=== PATIENT | female | born 1950 | race Caucasian/White ===

== ENCOUNTER 2017-12-15 14:48 | Emergency (ER) | payer MEDICARE, OTHER ==
[2017-12-15 14:56] VITALS: BP 160/75
[2017-12-15] MEDS ORDERED: Albuterol/Ipratropium 3.0-0.5 MG/3 ML Neb Soln NEB ONE (15:18)
--- NOTE | 2017-12-15 15:55 | EDM.PDOC ---
ED HPI GENERAL MEDICAL PROBLEM - General Chief Complaint: Respiratory Problem Stated Complaint: SOB Time Seen by Provider: 12/15/17 14:55 Source of Information: Reports: Patient History Limitations: Reports: No Limitations - History of Present Illness INITIAL COMMENTS - FREE TEXT/NARRATIVE: 67-year-old female presents for evaluation and treatments of a cough. Patient reports she's been experiencing a cough and shortness of breath for the last week. Reports on she developed a sore throat. Chest reports she had a fever on and Sunday and was diaphoretic. States she feels more fatigued than normal. Her cough is mostly nonproductive. No nausea, vomiting or abdominal pain. No influenza vaccine this season. She is up to date on her pneumonia vaccine. Primary care provider is Brook Rand. Duration: Week(s): (1) Chest Pain Score (Numeric/FACES): 8 - Related Data Allergies Allergy/AdvReac Type Severity Reaction Status Date / Time atorvastatin calcium AdvReac Muscle Verified 11/18/15 11:35 [From Lipitor] Aches meperidine HCl [From Demerol] AdvReac Change Verified 11/18/15 11:35 Mental Status Home Meds: Home Meds Aspirin [Aravind Chewable] 81 mg PO DAILY 03/16/14 [History] Clopidogrel [Plavix] 75 mg PO DAILY 03/16/14 [History] Rosuvastatin [Crestor] 10 mg PO DAILY 03/16/14 [History] Ubidecarenone [Co Q-10] 100 mg PO BEDTIME 08/04/15 [History] amLODIPine [Norvasc] 2.5 mg PO DAILY 08/04/15 [History] Doxycycline [Vibramycin] 100 mg PO BID #20 cap 12/15/17 [Rx] Escitalopram [Lexapro] 10 mg PO DAILY 12/15/17 [History] Levothyroxine 75 mcg PO DAILY 12/15/17 [History] Losartan Potassium 50 mg PO DAILY 12/15/17 [History] Promethazine HCl/Codeine [Prometh-Codein 6.25-10 mg/5 ml] 5 ml PO Q6HR PRN #120 ml 12/15/17 [Rx] Past Medical History Cardiovascular History: Reports: High Cholesterol, Hypertension, [place], Stents Oncologic (Cancer) History: Reports: Thyroid Other Oncologic History: removed - Past Surgical History Female Surgical History: Reports: Hysterectomy Social & Family History - Tobacco Use Smoking Status *Q: Current Every Day Smoker Years of Tobacco use: 45 Packs/Tins Daily: 0.5 - Caffeine Use Caffeine Use: Reports: Coffee, Soda - Recreational Drug Use Recreational Drug Use: No ED ROS GENERAL - Review of Systems Review Of Systems: See Below Constitutional: Reports: Fever, Malaise, Weakness, Fatigue, Diaphoresis. Denies : Chills HEENT: Reports: Throat Pain. Denies: Ear Pain Respiratory: Reports: Shortness of Breath, Cough. Denies: Sputum Cardiovascular: Reports: Other (chest pain associated with coughing) GI/Abdominal: Denies: Abdominal Pain, Diarrhea, Nausea, Vomiting ED EXAM, GENERAL - Physical Exam Exam: See Below Exam Limited By: No Limitations General Appearance: Alert, WD/WN, No Apparent Distress Ears: Normal External Exam, Normal Canal, Hearing Grossly Normal, Normal TMs Nose: Normal Inspection Throat/Mouth: Normal Inspection, Normal Lips, Normal Voice, No Airway Compromise Neck: Normal Inspection Respiratory/Chest: No Respiratory Distress, Lungs Clear, Wheezing (expiratory). No: Rhonchi Cardiovascular: Normal Peripheral Pulses, Regular Rate, Rhythm, No Murmur GI/Abdominal: Soft, Non-Tender Extremities: Normal Inspection Neurological: Alert, Oriented, Normal Cognition Psychiatric: Normal Affect, Normal Mood Skin Exam: Warm, Dry, Normal Color Course - Vital Signs Last Recorded V/S: Last Vital Signs Temp 36.5 C 12/15/17 14:53 Pulse 77 12/15/17 14:53 Resp 24 H 12/15/17 14:53 BP 160/75 H 12/15/17 14:53 Pulse Ox 98 12/15/17 15:26 - Orders/Labs/Meds Orders: Active Orders 24 hr Category Date Time Status RT Aerosol Therapy [RC] ASDIRECTED Care 12/15/17 15:18 Active Chest 2V [CR] Stat Exams 12/15/17 15:17 Taken Labs: Laboratory Tests 12/15/17 12/15/17 Range/Units 15:27 15:27 WBC 8.06 (3.98-10.04) K/mm3 RBC 3.92 L (3.98-5.22) M/mm3 Hgb 13.0 (11.2-15.7) gm/L Hct 38.6 (34.1-44.9) % MCV 98.5 H (79.4-94.8) fl MCH 33.2 H (25.6-32.2) pg MCHC 33.7 (32.2-35.5) g/dl RDW Std Deviation 45.2 (36.4-46.3) fL Plt Count 285 (182-369) K/mm3 MPV 9.6 (9.4-12.3) fl Neutrophils % (Manual) 61 H (40-60) % Band Neutrophils % 0 (0-10) % Lymphocytes % (Manual) 31 (20-40) % Atypical Lymphs % 0 % Monocytes % (Manual) 3 (2-10) % Eosinophils % (Manual) 4 (0.7-5.8) % Basophils % (Manual) 1 (0.1-1.2) Platelet Estimate Adequate Plt Morphology Comment Normal RBC Morph Comment Normal Sodium 136 (136-145) mEq/L Potassium 4.1 (3.5-5.1) mEq/L Chloride 100 (98-107) mEq/L Carbon Dioxide 25 (21-32) mEq/L Anion Gap 15.1 H (5-15) BUN 19 H (7-18) mg/dL Creatinine 0.9 (0.55-1.02) mg/dL Est Cr Clr Drug Dosing 57.37 mL/min Estimated GFR (MDRD) > 60 (>60) mL/min BUN/Creatinine Ratio 21.1 H (14-18) Glucose 105 (80-115) mg/dL Calcium 9.0 (8.5-10.1) mg/dL Total Bilirubin 0.3 (0.2-1.0) mg/dL AST 12 L (15-37) U/L ALT 16 (14-59) U/L Alkaline Phosphatase 99 (46-116) U/L C-Reactive Protein 1.4 H* (<1.0) mg/dL Total Protein 6.9 (6.4-8.2) g/dl Albumin 3.8 (3.4-5.0) g/dl Globulin 3.1 gm/dL Albumin/Globulin Ratio 1.2 (1-2) Meds: Medications Discontinued Medications Generic Name Dose Route Start Last Admin Trade Name Freq PRN Reason Stop Dose Admin Albuterol/Ipratropium 3 ml 12/15/17 15:18 12/15/17 15:26 Duoneb 3.0-0.5 Mg/3 Ml NEB 12/15/17 15:19 3 ml ONETIME ONE Administration - Radiology Interpretation Free Text/Narrative:: Chest x-ray shows no acute intrathoracic process. Reviewed by myself and Dr. Arun Joyce. - Re-Assessments/Exams Free Text/Narrative Re-Assessment/Exam: 12/15/17 18:09 Wheezing improved after the DuoNeb. Influenza returned negative. I reviewed the labs and imaging with the patient. Will treat for bronchitis. She has a nebulizer machine at home with albuterol nebulizers. I encouraged her to use this. No formal diagnosis of COPD but she does likely have some mild COPD and emphysema. Discharge insertions as documented. Departure - Departure Time of Disposition: 18:16 Disposition: Home, Self-Care 01 Condition: Fair Clinical Impression: Bronchitis - Discharge Information Prescriptions: Promethazine HCl/Codeine [Prometh-Codein 6.25-10 mg/5 ml] 5 ml PO Q6HR PRN #120 ml PRN Reason: Cough Doxycycline [Vibramycin] 100 mg PO BID #20 cap Instructions: Acute Bronchitis, Adult Referrals: Brook Rand, [employer] [Primary Care Provider] - Forms: ED Department Discharge Additional Instructions: Take the doxycycline 1 Twice a day for 10 days. Take this with food. This can cause photosensitivity. if you are outside in the sun make sure you are wearing sunscreen. Cough syrup with codeine 5 mls every 6 hours as needed for cough. This medication and make you drowsy. Do not drive or operate machinery within 12 hours of taking this. This medication is habit forming, take as little as needed to control you cough. Utilize your nebulizers that you have at home. One neb every 4-6 hours as needed for shortness of breath. Follow-up with her primary care provider within 10 days for recheck of your symptoms. Please return to the ER if your symptoms change or worsen. - My Orders Last 24 Hours: My Active Orders 12/15/17 15:17 Chest 2V [CR] Stat 12/15/17 15:18 RT Aerosol Therapy [RC] ASDIRECTED - Assessment/Plan Last 24 Hours: My Active Orders 12/15/17 15:17 Chest 2V [CR] Stat 12/15/17 15:18 RT Aerosol Therapy [RC] ASDIRECTED
--- NOTE | 2017-12-16 10:33 | CR ---
Chest: Two views of the chest were obtained. Comparison: Prior chest x-ray of 12/05/16. Heart size and mediastinum are normal. Lungs are somewhat hyperinflated. Lungs otherwise are clear. Minimal scoliosis is noted within the spine. Minimal degenerative change is also noted within the spine. Impression: 1. Emphysematous change and other incidental findings. Nothing acute is appreciated on two-view chest x-ray. Diagnostic code #2
== END 2017-12-15 18:26 | disposition home or self-care (01) ==
LOC: JD.ED 14:48
DX: J40 Bronchitis, not specified as acute or chronic (principal); E78.00 Pure hypercholesterolemia, unspecified; I10 Essential (primary) hypertension; F17.210 Nicotine dependence, cigarettes, uncomplicated; E07.9 Disorder of thyroid, unspecified; Z88.8 Allergy status to other drugs, medicaments and biological substances; Z88.5 Allergy status to narcotic agent; Z79.82 Long term (current) use of aspirin; Z79.899 Other long term (current) drug therapy
CPT/HCPCS: 36415; 71046; 71046-26; 80053; 85025; 86140; 87804; 94640; 99283; 99284-25

== ENCOUNTER 2020-01-24 22:38 | Emergency (ER) | payer MEDICARE, OTHER ==
[2020-01-24 22:48] VITALS: PULSE 69
[2020-01-24 22:51] VITALS: BP 160/60
--- NOTE | 2020-01-24 23:27 | EDM.PDOC ---
ED HPI GENERAL MEDICAL PROBLEM - General Chief Complaint: Chest Pain Stated Complaint: [facility] Time Seen by Provider: 01/24/20 22:50 Source of Information: Reports: Patient History Limitations: Reports: No Limitations - History of Present Illness INITIAL COMMENTS - FREE TEXT/NARRATIVE: This is a 70-year-old female. Tonight after eating some pizza and having a few beers she noted that she developed some epigastric cold sensation around 8 PM. Then she had some nausea and vomiting x3 felt somewhat dizzy and sweaty and lightheaded and called the ambulance and comes to the ER. She denies being short of breath and there is no radiation of her dull sensation into her jaw or down her left arm. She has a history of hypertension and she has 3 stents from 2008 and she is on Plavix. Presently she says she feels much better. She denies any recent illnesses and no recent chest pain or dull sensation in her chest in the last week until this evening. The patient does admit to the nurse that she drinks 3-4 beers every day. Middle Chest Pain Score (Numeric/FACES): 5 - Related Data Allergies Allergy/AdvReac Type Severity Reaction Status Date / Time atorvastatin calcium AdvReac Severe Muscle Verified 01/24/20 22:50 [From Lipitor] Aches meperidine HCl [From Demerol] AdvReac Severe Change Verified 01/24/20 22:50 Mental Status Home Meds: Home Meds Aspirin [Aravind Chewable Aspirin] 81 mg PO BEDTIME 03/16/14 [History] Clopidogrel [Plavix] 75 mg PO DAILY 03/16/14 [History] Rosuvastatin [Crestor] 10 mg PO BEDTIME 03/16/14 [History] Ubidecarenone [Co Q-10] 100 mg PO BEDTIME 08/04/15 [History] Escitalopram [Lexapro] 10 mg PO BEDTIME 12/15/17 [History] Levothyroxine 75 mcg PO ACBREAKFAST 12/15/17 [History] Fluticasone/Salmeterol [Advair 100-50] 1 puff INH BID 10/08/18 [History] Lisinopril 40 mg PO DAILY 10/08/18 [History] Multivitamin [Multi-Day Vitamins] 1 tab PO 1200 10/08/18 [History] Nicotine [Nicotine Patch] 21 mg TD DAILY 10/08/18 [History] Azithromycin [Zithromax] 500 mg PO Q24H #4 tablet 10/10/18 [Rx] Ondansetron [Zofran] 4 mg PO Q6H PRN #12 tab 01/25/20 [Rx] Pantoprazole Sodium [Protonix] 40 mg PO DAILY #30 suspdr.pkt 01/25/20 [Rx] Past Medical History HEENT History: Reports: Impaired Vision Cardiovascular History: Reports: High Cholesterol, Hypertension, [place], Stents Respiratory History: Reports: Bronchitis, Recurrent, Pneumonia, Recurrent Musculoskeletal History: Reports: Back Pain, Chronic Neurological History: Reports: Migraines, Neuropathy, Peripheral Psychiatric History: Reports: Depression Endocrine/Metabolic History: Reports: Hypothyroidism Oncologic (Cancer) History: Reports: Thyroid Other Oncologic History: removed - Past Surgical History Female Surgical History: Reports: Hysterectomy Social & Family History - Family History Family Medical History: Noncontributory - Tobacco Use Smoking Status *Q: Current Every Day Smoker Years of Tobacco use: 50 Packs/Tins Daily: 0.5 - Caffeine Use Caffeine Use: Reports: Coffee - Recreational Drug Use Recreational Drug Use: No ED ROS GENERAL - Review of Systems Review Of Systems: See Below Constitutional: Denies: Fever, Chills HEENT: Reports: No Symptoms Respiratory: Denies: Shortness of Breath, Cough Cardiovascular: Reports: Chest Pain, Lightheadedness Endocrine: Reports: No Symptoms GI/Abdominal: Reports: Nausea, Vomiting. Denies: Abdominal Pain, Diarrhea : Reports: No Symptoms Musculoskeletal: Reports: No Symptoms Skin: Reports: Diaphoresis Neurological: Reports: Dizziness Psychiatric: Reports: No Symptoms Hematologic/Lymphatic: Reports: No Symptoms ED EXAM, GENERAL - Physical Exam Exam: See Below Exam Limited By: No Limitations General Appearance: Alert, WD/WN, No Apparent Distress Eye Exam: Bilateral Eye: Normal Inspection Ears: Normal External Exam Nose: Normal Inspection Throat/Mouth: Normal Inspection, Normal Lips, Normal Voice, No Airway Compromise Head: Normocephalic Neck: Supple Respiratory/Chest: No Respiratory Distress, Lungs Clear, Normal Breath Sounds Cardiovascular: Regular Rate, Rhythm, No Murmur GI/Abdominal: Soft, Non-Tender Back Exam: Full Range of Motion Extremities: Normal Inspection, Normal Range of Motion Neurological: Alert, Oriented Psychiatric: Normal Affect, Normal Mood Skin Exam: Warm, Dry EKG INTERPRETATION EKG Date: 01/24/20 Time: 22:45 EKG Interpretation Comments: EKG shows a normal sinus rhythm rate of 67, there is no acute ST or T wave changes noted and there is no acute ischemia noted Course - Vital Signs Last Recorded V/S: Last Vital Signs Temp 97.2 F 01/24/20 22:42 Pulse 69 01/24/20 22:42 Resp 18 01/24/20 22:42 BP 160/60 H 01/24/20 22:51 Pulse Ox 98 01/24/20 22:42 - Orders/Labs/Meds Orders: Active Orders 24 hr Category Date Time Status EKG Documentation Completion [RC] ASDIRECTED Care 01/24/20 22:47 Active Chest 1V Frontal [CR] Stat Exams 01/24/20 22:47 Taken Sodium Chloride 0.9% [Normal Saline] 1,000 ml Med 01/25/20 00:15 Active IV ASDIRECTED EKG 12 Lead [EK] Stat Ther 01/24/20 22:47 Ordered Medication Orders Sodium Chloride (Normal Saline) 1,000 mls @ 1,000 mls/hr IV ASDIRECTED IJEOMA Last Admin: 01/25/20 00:12 Dose: 1,000 mls/hr Labs: Laboratory Tests 01/24/20 01/24/20 01/24/20 Range/Units 22:55 22:55 22:55 WBC 12.69 H (3.98-10.04) K/mm3 RBC 3.69 L (3.98-5.22) M/mm3 Hgb 12.6 D (11.2-15.7) gm/dl Hct 36.1 (34.1-44.9) % MCV 97.8 H (79.4-94.8) fl MCH 34.1 H (25.6-32.2) pg MCHC 34.9 (32.2-35.5) g/dl RDW Std Deviation 45.3 (36.4-46.3) fL Plt Count 362 D (182-369) K/mm3 MPV 8.5 L (9.4-12.3) fl Neut % (Auto) 74.6 H (34.0-71.1) % Lymph % (Auto) 15.0 L (19.3-51.7) % [place] % (Auto) 6.2 (4.7-12.5) % Eos % (Auto) 3.6 (0.7-5.8) Baso % (Auto) 0.3 (0.1-1.2) % Neut # (Auto) 9.46 H (1.56-6.13) K/mm3 Lymph # (Auto) 1.90 (1.18-3.74) K/mm3 [place] # (Auto) 0.79 H (0.24-0.36) K/mm3 Eos # (Auto) 0.46 H (0.04-0.36) K/mm3 Baso # (Auto) 0.04 (0.01-0.08) K/mm3 Manual Slide Review Normal smear Sodium 125 L D (136-145) mEq/L Potassium 3.9 (3.5-5.1) mEq/L Chloride 91 L D (98-107) mEq/L Carbon Dioxide 25 (21-32) mEq/L Anion Gap 12.9 (5-15) BUN 8 (7-18) mg/dL Creatinine 0.8 (0.55-1.02) mg/dL Est Cr Clr Drug Dosing 61.81 mL/min Estimated GFR (MDRD) > 60 (>60) mL/min BUN/Creatinine Ratio 10.0 L (14-18) Glucose 125 H (83-115) mg/dL Calcium 8.8 (8.5-10.1) mg/dL Total Bilirubin 0.4 (0.2-1.0) mg/dL AST 17 (15-37) U/L ALT 26 (14-59) U/L Alkaline Phosphatase 78 (46-116) U/L Troponin I 0.022 (0.00-0.056) ng/mL Total Protein 6.9 (6.4-8.2) g/dl Albumin 3.8 (3.4-5.0) g/dl Globulin 3.1 gm/dL Albumin/Globulin Ratio 1.2 (1-2) Lipase 133 (73-393) U/L Ethyl Alcohol 0.00 (0.00) gm% 01/25/20 Range/Units 01:10 WBC (3.98-10.04) K/mm3 RBC (3.98-5.22) M/mm3 Hgb (11.2-15.7) gm/dl Hct (34.1-44.9) % MCV (79.4-94.8) fl MCH (25.6-32.2) pg MCHC (32.2-35.5) g/dl RDW Std Deviation (36.4-46.3) fL Plt Count (182-369) K/mm3 MPV (9.4-12.3) fl Neut % (Auto) (34.0-71.1) % Lymph % (Auto) (19.3-51.7) % [place] % (Auto) (4.7-12.5) % Eos % (Auto) (0.7-5.8) Baso % (Auto) (0.1-1.2) % Neut # (Auto) (1.56-6.13) K/mm3 Lymph # (Auto) (1.18-3.74) K/mm3 [place] # (Auto) (0.24-0.36) K/mm3 Eos # (Auto) (0.04-0.36) K/mm3 Baso # (Auto) (0.01-0.08) K/mm3 Manual Slide Review Sodium (136-145) mEq/L Potassium (3.5-5.1) mEq/L Chloride (98-107) mEq/L Carbon Dioxide (21-32) mEq/L Anion Gap (5-15) BUN (7-18) mg/dL Creatinine (0.55-1.02) mg/dL Est Cr Clr Drug Dosing mL/min Estimated GFR (MDRD) (>60) mL/min BUN/Creatinine Ratio (14-18) Glucose (83-115) mg/dL Calcium (8.5-10.1) mg/dL Total Bilirubin (0.2-1.0) mg/dL AST (15-37) U/L ALT (14-59) U/L Alkaline Phosphatase (46-116) U/L Troponin I 0.026 (0.00-0.056) ng/mL Total Protein (6.4-8.2) g/dl Albumin (3.4-5.0) g/dl Globulin gm/dL Albumin/Globulin Ratio (1-2) Lipase (73-393) U/L Ethyl Alcohol (0.00) gm% Meds: Medications Generic Name Dose Route Start Last Admin Trade Name Freq PRN Reason Stop Dose Admin Sodium Chloride 1,000 mls @ 1,000 mls/hr 01/25/20 00:15 01/25/20 00:12 Normal Saline IV 1,000 mls/hr ASDIRECTED IJEOMA Administration - Radiology Interpretation Free Text/Narrative:: Chest x-ray does not show any acute changes - Re-Assessments/Exams Free Text/Narrative Re-Assessment/Exam: 01/25/20 02:02 Open to the patient regarding her test results. That her sodium was 125 and we gave her some normal saline to hopefully boost that slightly and she needs to add some salt to her diet. Both of her troponins were negative. She does complain of esophageal reflux and I will put her on medications for this. Departure - Departure Time of Disposition: 02:03 Disposition: Home, Self-Care 01 Condition: Fair Clinical Impression: Nausea and vomiting Qualifiers: Vomiting type: unspecified Vomiting Intractability: non-intractable Qualified Code(s): R11.2 - Nausea with vomiting, unspecified Esophageal reflux Qualifiers: Esophagitis presence: without esophagitis Qualified Code(s): K21.9 - Gastro- esophageal reflux disease without esophagitis Prescriptions: Ondansetron [Zofran] 4 mg PO Q6H PRN #12 tab PRN Reason: Nausea Pantoprazole Sodium [Protonix] 40 mg PO DAILY #30 suspdr.pkt Instructions: Indigestion, [id number] Referrals: Brook Rand [employer] [Primary Care Provider] - Forms: ED Department Discharge Additional Instructions: Take the Protonix daily to help with the esophageal reflux or heartburn, use the Zofran as needed for nausea, stay on clear liquids for the next 24 hours do not drink any alcohol, follow-up with your family doctor this coming week for recheck, return to the ER if your symptoms worsen Sepsis Event Note - Evaluation Sepsis Screening Result: No Definite Risk - Focused Exam Vital Signs: Vital Signs Temp Pulse Resp BP Pulse Ox 01/24/20 22:51 160/60 H 01/24/20 22:42 97.2 F 69 18 98 Date Exam was Performed: 01/25/20 Time Exam was Performed: 02:02 - My Orders Last 24 Hours: My Active Orders 01/24/20 22:47 EKG Documentation Completion [RC] ASDIRECTED Chest 1V Frontal [CR] Stat EKG 12 Lead [EK] Stat 01/25/20 00:15 Sodium Chloride 0.9% [Normal Saline] 1,000 ml IV ASDIRECTED - Assessment/Plan Last 24 Hours: My Active Orders 01/24/20 22:47 EKG Documentation Completion [RC] ASDIRECTED Chest 1V Frontal [CR] Stat EKG 12 Lead [EK] Stat 01/25/20 00:15 Sodium Chloride 0.9% [Normal Saline] 1,000 ml IV ASDIRECTED
[2020-01-25] MEDS ORDERED: Sodium Chloride 0.9% 1,000 ML IV SCH (00:15)
[2020-01-25] MEDS ORDERED: Pantoprazole 40 MG Tab.CR PO STA (02:08)
[2020-01-25] MEDS ORDERED: Ondansetron 4 MG/2 ML SDV IVPUSH ONE (02:08)
--- NOTE | 2020-01-25 08:15 | CR ---
Chest: Portable view of the chest was obtained. Comparison: Prior chest x-ray of 10/08/18. Heart size and mediastinum are within normal limits. Lungs are clear with no acute parenchymal change. Bony structures show slight scoliosis within the spine. Impression: 1. Nothing acute is identified on portable chest x-ray. Diagnostic code #1 This report was dictated in MDT
== END 2020-01-25 02:22 | disposition home or self-care (01) ==
LOC: JD.ED 22:38
DX: K21.9 Gastro-esophageal reflux disease without esophagitis (principal); E78.00 Pure hypercholesterolemia, unspecified; I10 Essential (primary) hypertension; I25.2 Old myocardial infarction; G62.9 Polyneuropathy, unspecified; F32.9 Major depressive disorder, single episode, unspecified; E03.9 Hypothyroidism, unspecified; F17.210 Nicotine dependence, cigarettes, uncomplicated; Z79.82 Long term (current) use of aspirin; Z79.02 Long term (current) use of antithrombotics/antiplatelets; Z79.899 Other long term (current) drug therapy; Z88.8 Allergy status to other drugs, medicaments and biological substances; Z88.5 Allergy status to narcotic agent
CPT/HCPCS: 36415; 71045; 80053; 80307; 83690; 84484; 85025; 93005; 96361; 96374; 99285; A9270; J2405; J7030; 93010; 99283

== ENCOUNTER 2021-08-12 19:47 | Emergency (ER) | payer MEDICARE, OTHER ==
[2021-08-12] MEDS ORDERED: Sodium Chloride 0.9% 10 ML Syringe FLUSH PRN (20:26)
[2021-08-12] MEDS ORDERED: Aspirin 81 MG Tab.Chew PO ONE (20:26)
[2021-08-12] MEDS ORDERED: Nitroglycerin 0.3 MG Tab.SL SL ONE (20:50)
[2021-08-12] MEDS ORDERED: Nitroglycerin 0.4 MG Tab.SL ONE (21:20)
[2021-08-12] MEDS ORDERED: Morphine 4 MG/ML Syringe IVPUSH ONE (21:30)
[2021-08-12] MEDS ORDERED: Sodium Chloride 0.9% 10 ML SDV FLUSH ONE (21:46)
[2021-08-12] MEDS ORDERED: Iopamidol 755 Mg/ML 100 ML Bottle IVPUSH ONE (21:46)
[2021-08-12] MEDS ORDERED: Sodium Chloride 0.9% 100 ML IV SCH (22:00)
--- NOTE | 2021-08-12 22:19 | EDM.PDOC ---
ED HPI GENERAL MEDICAL PROBLEM - General Chief Complaint: Chest Pain Stated Complaint: BACK PAIN Time Seen by Provider: 08/12/21 21:00 Source of Information: Reports: Patient History Limitations: Reports: No Limitations - History of Present Illness INITIAL COMMENTS - FREE TEXT/NARRATIVE: Patient is a 71-year-old female with a past medical history of smoking, CAD status post 3 stents presenting with a chief complaint of chest pain and back pain. Patient reports pain in the upper part of her back that radiates around to the front of her anterior chest. Pain seems a worse with deep breathing. She has no associated fevers or cough. Denies any exertional symptoms. Symptoms started 3 days ago. Yesterday they were more mild in nature. Today the seem to worsen. She cannot seem to get comfortable. Denies any prior history of DVT or PE. Denies any recent hospitalization or surgery. Chest Pain Score (Numeric/FACES): 8 - Related Data Allergies Allergy/AdvReac Type Severity Reaction Status Date / Time atorvastatin calcium AdvReac Severe Muscle Verified 08/12/21 20:21 [From Lipitor] Aches meperidine HCl [From Demerol] AdvReac Severe Change Verified 08/12/21 20:21 Mental Status Home Meds: Home Meds Aspirin [Aravind Chewable Aspirin] 81 mg PO BEDTIME 03/16/14 [History] Clopidogrel [Plavix] 75 mg PO DAILY 03/16/14 [History] Rosuvastatin [Crestor] 40 mg PO BEDTIME 03/16/14 [History] Ubidecarenone [Co Q-10] 100 mg PO BEDTIME 08/04/15 [History] Levothyroxine 75 mcg PO ACBREAKFAST 12/15/17 [History] Lisinopril 40 mg PO DAILY 10/08/18 [History] Multivitamin [Multi-Day Vitamins] 1 tab PO 1200 10/08/18 [History] Amoxicillin 500 mg PO TID #21 tab 08/12/21 [Rx] Azithromycin 250 mg PO DAILY #4 tablet 08/12/21 [Rx] Fluticasone/Umeclidin/Vilanter [Trelegy Ellipta 100-62.5-25] 1 puff IH ASDIRECTED 08/12/21 [History] lisinopriL [Lisinopril] 20 mg PO DAILY 08/12/21 [History] Past Medical History HEENT History: Reports: Impaired Vision Cardiovascular History: Reports: High Cholesterol, Hypertension, [place], Stents, Other (See Below) Other Cardiovascular History: CPVT Respiratory History: Reports: Bronchitis, Recurrent, Pneumonia, Recurrent Musculoskeletal History: Reports: Back Pain, Chronic Neurological History: Reports: Migraines, Neuropathy, Peripheral Psychiatric History: Reports: Depression Endocrine/Metabolic History: Reports: Hypothyroidism Oncologic (Cancer) History: Reports: Thyroid Other Oncologic History: removed - Past Surgical History Cardiovascular Surgical History: Reports: Other (See Below) Other Cardiovascular Surgeries/Procedures: 3 stents Female Surgical History: Reports: Hysterectomy Endocrine Surgical History: Reports: Thyroidectomy Musculoskeletal Surgical History: Reports: Other (See Below) Other Musculoskeletal Surgeries/Procedures:: back surgery x3 Social & Family History - Family History Family Medical History: No Pertinent Family History - Tobacco Use Tobacco Use Status *Q: Current Every Day Tobacco User Years of Tobacco use: 50 Packs/Tins Daily: 1 - Caffeine Use Caffeine Use: Reports: Coffee - Recreational Drug Use Recreational Drug Use: Yes Drug Use in Last 12 Months: Yes Recreational Drug Type: Reports: Marijuana/Hashish ED ROS GENERAL - Review of Systems Review Of Systems: See Below Free Text/Narrative/Comment: In addition to that documented in the HPI above, the additional ROS was obtained: Constitutional: Denies fevers or chills Eyes: Denies vision changes ENMT: Denies sore throat CV: Per HPI Resp: Denies SOB GI: Denies vomiting or diarrhea : Denies painful urination MSK: Denies recent trauma Skin: Denies new rashes Neuro: Denies new numbness or tingling or weakness Endocrine: Denies unexpected weight loss Heme: Denies bleeding disorders ED EXAM, GENERAL - Physical Exam Exam: See Below Free Text/Narrative:: I have reviewed the triage vital signs Const: Well nourished, well developed, appears stated age Eyes: Pupils Equal and reactive to light bilaterally, no conjunctival injection HENT: No signs of trauma or swelling, Neck supple without meningismus CV: Regular Rate Rhythm, Warm, well-perfused extremities RESP: Unlabored respiratory effort GI: soft, non-tender, non-distended, no masses MSK: No gross deformities appreciated Skin: Warm, dry. No rashes Neuro: Alert, shipping and receiving material handler II-XII grossly intact. Sensation and motor function of extremities grossly intact. Psych: Appropriate mood and affect. #1 Interpretation EKG Date: 08/12/21 Time: 20:25 Rhythm: NSR Rate (Beats/Min): 59 Dora: Normal P-Wave: Present QRS: Normal ST-T: Normal QT: Normal Comparison: NA - No Prior EKG EKG Interpretation Comments: Normal EKG Course - Vital Signs Last Recorded V/S: Last Vital Signs Temp 36.9 C 08/12/21 23:15 Pulse 82 08/12/21 23:15 Resp 18 08/12/21 23:15 BP 124/75 08/12/21 23:15 Pulse Ox 100 08/12/21 23:15 - Orders/Labs/Meds Orders: Active Orders 24 hr Category Date Time Status Ang Chest [CT] Stat Exams 08/12/21 21:40 Taken Chest 1V Frontal [CR] Stat Exams 08/12/21 20:27 Taken CORONAVIRUS COVID-19 TACHO [MOLEC] Stat Lab 08/12/21 22:20 Ordered Peripheral IV Insertion Adult [OM.PC] Stat Oth 08/12/21 20:27 Ordered Labs: Laboratory Tests 08/12/21 08/12/21 08/12/21 Range/Units 21:00 21:00 21:00 WBC 7.35 (3.98-10.04) K/mm3 RBC 3.60 L (3.98-5.22) M/mm3 Hgb 12.5 (11.2-15.7) gm/dl Hct 36.3 (34.1-44.9) % MCV 100.8 H (79.4-94.8) fl MCH 34.7 H (25.6-32.2) pg MCHC 34.4 (32.2-35.5) g/dl RDW Std Deviation 45.6 (36.4-46.3) fL Plt Count 308 (182-369) K/mm3 MPV 9.4 (9.4-12.3) fl Neut % (Auto) 53.9 (34.0-71.1) % Lymph % (Auto) 27.2 (19.3-51.7) % [place] % (Auto) 10.1 (4.7-12.5) % Eos % (Auto) 8.0 H (0.7-5.8) Baso % (Auto) 0.7 (0.1-1.2) % Neut # (Auto) 3.96 (1.56-6.13) K/mm3 Lymph # (Auto) 2.00 (1.18-3.74) K/mm3 [place] # (Auto) 0.74 H (0.24-0.36) K/mm3 Eos # (Auto) 0.59 H (0.04-0.36) K/mm3 Baso # (Auto) 0.05 (0.01-0.08) K/mm3 PT 10.4 (9.7-12.0) SECONDS INR 0.93 D-Dimer, Quantitative 2.29 H (0.19-0.50) mg/L Sodium 137 (136-145) mEq/L Potassium 3.9 (3.5-5.1) mEq/L Chloride 102 (98-107) mEq/L Carbon Dioxide 26 (21-32) mEq/L Anion Gap 12.9 (5-15) BUN 14 (7-18) mg/dL Creatinine 0.8 (0.55-1.02) mg/dL Est Cr Clr Drug Dosing 58.63 mL/min Estimated GFR (MDRD) > 60 (>60) mL/min BUN/Creatinine Ratio 17.5 (14-18) Glucose 107 H (70-99) mg/dL Calcium 8.9 (8.5-10.1) mg/dL Magnesium 2.1 (1.8-2.4) mg/dL Total Bilirubin 0.2 (0.2-1.0) mg/dL AST 13 L (15-37) U/L ALT 18 (14-59) U/L Alkaline Phosphatase 93 (46-116) U/L Troponin I < 0.017 (0.00-0.056) ng/mL Total Protein 7.0 (6.4-8.2) g/dl Albumin 4.0 (3.4-5.0) g/dl Globulin 3.0 gm/dL Albumin/Globulin Ratio 1.3 (1-2) Meds: Medications Discontinued Medications Generic Name Dose Route Start Last Admin Trade Name Freq PRN Reason Stop Dose Admin Amoxicillin 500 mg 08/12/21 22:53 Amoxicillin 500 Mg Cap PO 08/12/21 22:54 ONETIME ONE Aspirin 324 mg 08/12/21 20:26 08/12/21 20:58 Aspirin 81 Mg Tab.Chew PO 08/12/21 20:27 324 mg ONETIME ONE Administration Azithromycin 500 mg 08/12/21 22:53 Azithromycin 250 Mg Tab PO 08/12/21 22:54 ONETIME ONE Sodium Chloride 100 mls @ 60 mls/min 08/12/21 22:00 08/12/21 22:15 Normal Saline IV 60 mls/min ASDIRECTED IJEOMA Administration Iopamidol 100 ml 08/12/21 21:46 08/12/21 22:15 Iopamidol 755 Mg/Ml 100 Ml Bottle IVPUSH 08/12/21 21:47 100 ml ONETIME ONE Administration Morphine Sulfate 4 mg 08/12/21 21:30 08/12/21 21:53 Morphine 4 Mg/Ml Syringe IVPUSH 08/12/21 21:31 4 mg ONETIME ONE Administration Nitroglycerin 0.3 mg 08/12/21 20:50 08/12/21 21:26 Nitroglycerin 0.3 Mg Tab.Sl SL 08/12/21 20:51 Not Given ONETIME ONE Nitroglycerin Confirm 08/12/21 21:20 08/12/21 21:22 Nitroglycerin 0.4 Mg Tab.Sl Administered 08/12/21 21:21 0.4 mg Dose Administration 0.4 mg .ROUTE .STK-MED ONE Oxycodone HCl 10 mg 08/12/21 22:54 Oxycodone Er 10 Mg Tab.Er PO 08/12/21 22:55 ONETIME ONE Sodium Chloride 10 ml 08/12/21 20:26 08/12/21 22:15 Sodium Chloride 0.9% 10 Ml Syringe FLUSH 10 ml ASDIRECTED PRN Administration Keep Vein Open Sodium Chloride 10 ml 08/12/21 21:46 08/12/21 22:18 Sodium Chloride 0.9% 10 Ml Sdv FLUSH 08/12/21 21:47 10 ml ONETIME ONE Administration Departure - Departure Time of Disposition: 22:54 Disposition: Home, Self-Care 01 Clinical Impression: Chest pain, Opacity of lung on imaging study Prescriptions: Amoxicillin 500 mg PO TID #21 tab Azithromycin 250 mg PO DAILY #4 tablet Instructions: Nonspecific Chest Pain, Adult, [id number] Referrals: Brook Rand D[employer]ITAL [employer]IC INSTRUCTOR [Primary Care Provider] - Forms: ED Department Discharge Additional Instructions: Please follow-up with your primary care physician next week. There is a area on your lung that will need repeat imaging to ensure it is not cancerous. Return to the emergency room for worsening of pain or any other emergent concerns. Please take antibiotics as directed. Sepsis Event Note (ED) - Evaluation Sepsis Screening Result: No Definite Risk - Focused Exam Vital Signs: Vital Signs Temp Pulse Resp BP BP Pulse Ox 08/12/21 23:15 36.9 C 82 18 124/75 100 08/12/21 21:22 150/63 H 08/12/21 20:19 36.6 C 63 16 96 - My Orders Last 24 Hours: My Active Orders 08/12/21 20:27 Chest 1V Frontal [CR] Stat Peripheral IV Insertion Adult [OM.PC] Stat 08/12/21 21:40 Ang Chest [CT] Stat 08/12/21 22:20 CORONAVIRUS COVID-19 TACHO [MOLEC] Stat - Assessment/Plan Last 24 Hours: My Active Orders 08/12/21 20:27 Chest 1V Frontal [CR] Stat Peripheral IV Insertion Adult [OM.PC] Stat 08/12/21 21:40 Ang Chest [CT] Stat 08/12/21 22:20 CORONAVIRUS COVID-19 TACHO [MOLEC] Stat Assessment:: Patient is a 70-year-old female presenting to the emergency room with a chief complaint of chest pain. Unremarkable ER course. No change with nitroglycerin. Patient's blood pressure remained stable in the emergency room. Otherwise, no evidence of respiratory distress. Differential diagnosis considered for this patient include ACS, PE, aortic dissection, pneumonia. Laboratory studies and EKG and chest x-ray were performed initially. Other significant laboratory abnormality was elevated D-dimer. Troponin was negative. EKG normal. CT angiogram demonstrates evidence of groundglass opacity in the upper part of the left lung. This may explain patient's pain. Unclear whether this is a neoplastic lesion versus infectious process. At this point, I did initiate antibiotics and instruct the patient and she needs close follow-up with repeat imaging to evaluate for progression of this lesion. I did inform her that this may in fact be cancerous but it is unclear at this time. All questions were addressed and answered. Patient discharged in stable condition.
[2021-08-12] MEDS ORDERED: Amoxicillin 500 MG Cap PO ONE (22:53)
[2021-08-12] MEDS ORDERED: Azithromycin 250 MG Tab PO ONE (22:53)
[2021-08-12] MEDS ORDERED: oxyCODONE ER 10 MG TAB.ER PO ONE (22:54)
[2021-08-12 23:17] VITALS: BP 124/75; PULSE 82
--- NOTE | 2021-08-13 06:49 | CR ---
Chest: Portable view of the chest was obtained. Comparison: Prior chest x-ray of 03/30/20. Film technique is somewhat dark. Lungs show no definite acute parenchymal change. Heart size and mediastinum are within normal limits. Bony structures show nothing acute. Impression: 1. Film technique is somewhat dark. No definite acute abnormality is appreciated. Diagnostic code #2
--- NOTE | 2021-08-13 07:00 | CT ---
CT chest Technique: Multiple axial sections were obtained through the chest. Intravenous contrast was utilized. Study has been performed as a pulmonary angiogram protocol. Comparison: Prior chest CT study of 03/21/21 and 10/08/18. Findings: Pulmonary arteries are well opacified. No filling defects are seen to indicate pulmonary embolism. Thoracic aorta shows no aneurysm. Atherosclerotic change is seen within the aorta. Scattered lymph nodes are seen within the mediastinum which are stable. No axillary adenopathy is seen. Coronary artery atherosclerotic change is seen. No pericardial thickening is seen. Heart does not appear enlarged. Visualized upper abdominal structures show nothing acute. Lung window settings were reviewed. Slight scarring is seen within both upper lungs. Slight groundglass opacity is seen within the left upper chest which is stable from prior chest CTs and therefore is incidental. Emphysematous changes are scattered throughout both lungs. Lungs show no acute parenchymal change. Bone window settings were reviewed. Mild scattered degenerative change is seen within the thoracic spine. No acute osseous abnormality is appreciated. Impression: 1. No findings of pulmonary embolism. 2. Emphysematous change is present. 3. Findings within both lungs which remain stable from prior chest CTs. Nothing acute is seen. Diagnostic code #2 I agree with preliminary report from [facility], finalized on 08/12/21, 11:33 PM [employer], code 1
== END 2021-08-12 23:16 | disposition home or self-care (01) ==
LOC: JD.ED 19:47
DX: R07.9 Chest pain, unspecified (principal); R91.8 Other nonspecific abnormal finding of lung field; I25.10 Atherosclerotic heart disease of native coronary artery without angina pectoris; I25.2 Old myocardial infarction; E11.42 Type 2 diabetes mellitus with diabetic polyneuropathy; I10 Essential (primary) hypertension; E03.9 Hypothyroidism, unspecified; Z95.5 Presence of coronary angioplasty implant and graft; Z88.8 Allergy status to other drugs, medicaments and biological substances; Z79.82 Long term (current) use of aspirin; Z79.899 Other long term (current) drug therapy; Z79.02 Long term (current) use of antithrombotics/antiplatelets; Z72.0 Tobacco use
CPT/HCPCS: 36415; 71045; 71275; 80053; 83735; 84484; 85025; 85379; 85610; 93005; 96374; 99285; A9270; J2270; Q9967

== ENCOUNTER 2022-01-26 08:59 | Day surgery (SDC) | payer MEDICARE, OTHER ==
[2022-01-26] MEDS: Polymyxin B/Trimethoprim 10 ML Bottle EYELF SCH ×4 (09:09→11:19)
[2022-01-26 09:10] VITALS: PULSE 55
[2022-01-26] MEDS: Brimonidine 0.2% Ophth Soln 5 ML Bottle EYELF SCH ×4 (09:13→11:19)
[2022-01-26] MEDS: Phenylephrine 2.5% Ophth Soln 2 ML Bot EYELF SCH ×6 (09:17→11:09)
[2022-01-26] MEDS: Tropicamide 1% Ophth Soln 15 ML Bottle EYELF SCH ×4 (09:22→10:16)
[2022-01-26] MEDS ORDERED: Midazolam 1 MG/ML 2 ML SDV IVPUSH PRN (10:30)
[2022-01-26] MEDS: Tetracaine HCl/PF 0.5% 4 ML Bottle EYEBOTH SCH ×5 (10:31→11:09)
[2022-01-26] MEDS ORDERED: Midazolam 1 MG/ML 2 ML SDV ONE (10:33)
[2022-01-26] MEDS ORDERED: Ondansetron 4 MG/2 ML SDV IVPUSH PRN (11:00)
[2022-01-26] MEDS: Lidocaine 1% PF 2 ML SDV INJECT SCH ×2 (11:08→11:10)
[2022-01-26] MEDS: Pilocarpine 4% Ophth Soln 15 ML Bot EYELF SCH ×2 (11:10→11:19)
[2022-01-26] MEDS: Cefuroxime 10 MG/ML SYRINGE EYELF SCH ×2 (11:10→11:18)
[2022-01-26 11:38] VITALS: BP 117/53
== END 2022-01-26 11:32 | disposition home or self-care (01) ==
LOC: JD.SDS 08:59
PROVIDERS: ATTEND Ophthalmology
DX: H25.813 Combined forms of age-related cataract, bilateral (principal); H16.223 Keratoconjunctivitis sicca, not specified as Sjogren's, bilateral; H02.834 Dermatochalasis of left upper eyelid; H02.831 Dermatochalasis of right upper eyelid; I10 Essential (primary) hypertension; F32.A Depression, unspecified; J44.9 Chronic obstructive pulmonary disease, unspecified; F17.200 Nicotine dependence, unspecified, uncomplicated; E78.00 Pure hypercholesterolemia, unspecified; I25.2 Old myocardial infarction; G62.9 Polyneuropathy, unspecified; G43.909 Migraine, unspecified, not intractable, without status migrainosus; E03.9 Hypothyroidism, unspecified; Z79.82 Long term (current) use of aspirin; Z88.8 Allergy status to other drugs, medicaments and biological substances; Z79.899 Other long term (current) drug therapy; Z79.890 Hormone replacement therapy
CPT/HCPCS: 66984; J0697; V2632

== ENCOUNTER 2022-03-02 11:16 | Day surgery (SDC) | payer MEDICARE, OTHER ==
[2022-03-02 11:46] VITALS: BP 136/64; PULSE 60
[2022-03-02] MEDS ORDERED: LORazepam 2 MG/ML SDV IVPUSH ONE (12:14)
[2022-03-02] MEDS: Polymyxin B/Trimethoprim 10 ML Bottle EYERT SCH ×4 (12:20→13:55)
[2022-03-02] MEDS: Brimonidine 0.2% Ophth Soln 5 ML Bottle EYERT SCH ×4 (12:23→13:55)
[2022-03-02] MEDS: Phenylephrine 2.5% Ophth Soln 2 ML Bot EYERT SCH ×6 (12:27→13:40)
[2022-03-02] MEDS: Tropicamide 1% Ophth Soln 15 ML Bottle EYERT SCH ×4 (12:31→13:05)
[2022-03-02] MEDS: Tetracaine HCl/PF 0.5% 4 ML Bottle EYEBOTH SCH ×5 (13:17→13:45)
[2022-03-02] MEDS: Lidocaine 1% PF 2 ML SDV INJECT SCH ×2 (13:32→13:45)
[2022-03-02] MEDS: Pilocarpine 4% Ophth Soln 15 ML Bot EYERT SCH ×2 (13:32→13:55)
[2022-03-02] MEDS: Cefuroxime 10 MG/ML SYRINGE EYERT SCH ×2 (13:32→13:55)
[2022-03-02] MEDS ORDERED: Midazolam 1 MG/ML 2 ML SDV ONE (13:40)
== END 2022-03-02 14:15 | disposition home or self-care (01) ==
LOC: JD.SDS 11:16
PROVIDERS: ATTEND Ophthalmology
DX: H25.811 Combined forms of age-related cataract, right eye (principal); F41.9 Anxiety disorder, unspecified; E78.00 Pure hypercholesterolemia, unspecified; I10 Essential (primary) hypertension; F17.200 Nicotine dependence, unspecified, uncomplicated; I25.2 Old myocardial infarction; G62.9 Polyneuropathy, unspecified; E03.9 Hypothyroidism, unspecified; Z79.899 Other long term (current) drug therapy; Z98.890 Other specified postprocedural states; Z88.8 Allergy status to other drugs, medicaments and biological substances; Z79.82 Long term (current) use of aspirin
CPT/HCPCS: 66984; J0697; J2250; V2632

== ENCOUNTER 2023-12-19 06:00 | Emergency (ER) | payer MEDICARE, OTHER ==
[2023-12-19] MEDS ORDERED: Sodium Chloride 0.9% 10 ML Syringe FLUSH PRN (06:15)
[2023-12-19] MEDS: methylPREDNISolone Sodium Succinate 125 MG/2 ML SDV IVPUSH ONE (06:23)
[2023-12-19 06:25] LABS: BASOPHILS ABSOLUTE AUTO 0.1 K/mm3 (0.0-0.2); BASOPHILS PERCENT AUTO 1.5 % (0.0-1.0); EOSINOPHILS ABSOLUTE AUTO 0.9 K/mm3 (0.0-0.4); EOSINOPHILS PERCENT AUTO 12.5 % (0.0-6.0); HEMATOCRIT 37.6 % (37.0-47.0); HEMOGLOBIN 12.8 gm/dl (12.0-16.0); IMMATURE GRAN ABSOLUTE AUTO 0.02 K/mm3 (0.00-0.05); IMMATURE GRAN PERCENT AUTO 0.3 % (0.0-0.4); LYMPHOCYTES ABSOLUTE AUTO 2.2 K/mm3 (1.0-4.8); LYMPHOCYTES PERCENT AUTO 28.9 % (24.0-44.0); MEAN CORPUSCULAR HEMOGLOBIN 33.7 pg (28.0-32.0); MEAN CORPUSCULAR VOLUME 98.9 fl (83.0-99.0); MEAN PLATELET VOLUME 9.3 fl (9.4-12.3); MONOCYTES ABSOLUTE AUTO 0.5 K/mm3 (0.0-0.8); MONOCYTES PERCENT AUTO 6.5 % (0.0-8.0); NEUTROPHILS ABSOLUTE AUTO 3.8 K/mm3 (1.8-7.7); NEUTROPHILS PERCENT AUTO 50.3 % (41.0-71.0); PLATELET COUNT,PLT 302 K/mm3 (150-400); WHITE BLOOD CELL COUNT,WBC 7.54 K/mm3 (3.9-11.3)
[2023-12-19 06:37] LABS: A/G RATIO 1.3 (1-2); ANION GAP 15.4 (5-15); BILIRUBIN TOTAL 0.3 mg/dL (0.2-1.0); BUN/CREATININE RATIO 14.4 (14-18); CREATININE 0.9 mg/dL (0.55-1.02); EST CRCL DRUG DOSING (CG) 46.64 mL/min; POTASSIUM,K 4.4 mEq/L (3.5-5.1); PROTEIN TOTAL,TP 7.1 g/dl (6.4-8.2)
[2023-12-19] MEDS: Ondansetron 4 MG/2 ML SDV IVPUSH ONE (07:05)
[2023-12-19 07:09] VITALS: BP 132/78; PULSE 78
== END 2023-12-19 07:09 | disposition home or self-care (01) ==
LOC: JD.ED 06:00
DX: J44.1 Chronic obstructive pulmonary disease with (acute) exacerbation (principal); R11.0 Nausea; E78.00 Pure hypercholesterolemia, unspecified; I10 Essential (primary) hypertension; I25.2 Old myocardial infarction; E03.9 Hypothyroidism, unspecified; Z88.8 Allergy status to other drugs, medicaments and biological substances; Z79.82 Long term (current) use of aspirin; Z79.899 Other long term (current) drug therapy
CPT/HCPCS: 36415; 71045; 80053; 83880; 84484; 85025; 93005; 96374; 96375; 99285; J2405; J2930; 93010; 99284

== ENCOUNTER 2024-08-04 13:33 | Emergency (ER) | payer MEDICARE ==
[2024-08-04 14:02] VITALS: BP 188/69; PULSE 66
[2024-08-04] MEDS: Ondansetron 4 MG/2 ML SDV IVPUSH ONE (14:51)
[2024-08-04] MEDS: Sodium Chloride 0.9% 1,000 ML IV ONE (14:51)
[2024-08-04 15:02] LABS: BASOPHILS PERCENT AUTO 0.3 % (0.0-1.0); EOSINOPHILS ABSOLUTE AUTO 0.1 K/mm3 (0.0-0.4); EOSINOPHILS PERCENT AUTO 0.6 % (0.0-6.0); HEMATOCRIT 34.2 % (37.0-47.0); HEMOGLOBIN 12.3 gm/dl (12.0-16.0); IMMATURE GRAN ABSOLUTE AUTO 0.05 K/mm3 (0.00-0.05); IMMATURE GRAN PERCENT AUTO 0.5 % (0.0-0.4); LYMPHOCYTES ABSOLUTE AUTO 0.8 K/mm3 (1.0-4.8); LYMPHOCYTES PERCENT AUTO 8.1 % (24.0-44.0); MEAN CORPUSCULAR HEMOGLOBIN 33.3 pg (28.0-32.0); MEAN CORPUSCULAR VOLUME 92.7 fl (83.0-99.0); MEAN PLATELET VOLUME 9.8 fl (9.4-12.3); MONOCYTES ABSOLUTE AUTO 0.7 K/mm3 (0.0-0.8); MONOCYTES PERCENT AUTO 7.2 % (0.0-8.0); NEUTROPHILS ABSOLUTE AUTO 8.5 K/mm3 (1.8-7.7); NEUTROPHILS PERCENT AUTO 83.3 % (41.0-71.0); PLATELET COUNT,PLT 212 K/mm3 (150-400); RED BLOOD CELL COUNT 3.69 M/mm3 (4.10-5.30); WHITE BLOOD CELL COUNT,WBC 10.15 K/mm3 (3.9-11.3)
[2024-08-04 15:25] LABS: ALBUMIN 3.7 g/dl (3.4-5.0); BILIRUBIN TOTAL 0.5 mg/dL (0.2-1.0); BUN/CREATININE RATIO 14.4 (14-18); C-REACTIVE PROTEIN 6.16 mg/dL (<0.30); CALCIUM 8.6 mg/dL (8.5-10.1); CREATININE 0.9 mg/dL (0.55-1.02); EST CRCL DRUG DOSING (CG) 49.78 mL/min; PROTEIN TOTAL,TP 7.3 g/dl (6.4-8.2)
[2024-08-04 15:58] LABS: ANION GAP 18.9 (5-15); POTASSIUM,K 3.9 mEq/L (3.5-5.1)
[2024-08-04] MEDS: Metoclopramide 10 MG/2 ML SDV IVPUSH ONE (18:00)
[2024-08-04] MEDS: Acetaminophen 325 MG Tab PO ONE (18:01)
[2024-08-04 18:26] LABS: APPEARANCE,URINE CLEAR (Clear); BILIRUBIN,URINE NEGATIVE (Negative); COLOR,URINE YELLOW (Yellow); GLUCOSE,URINE NEGATIVE (Negative); KETONES,URINE 1+ (Negative); LEUKOCYTE ESTERASE,URINE NEGATIVE (Negative); NITRITE,URINE NEGATIVE (Negative); OCCULT BLOOD,URINE TRACE-INTACT (Negative); PH,URINE 6.5 (5.0-8.0); PROTEIN,URINE 3+ (Negative)
[2024-08-04 18:46] LABS: BACTERIA,URINE FEW /hpf (FEW); MUCUS,URINE FEW /hpf (FEW); WBC,URINE 0-5 /hpf (0-5)
[2024-08-04] MEDS: Albuterol/Ipratropium 3.0-0.5 MG/3 ML Neb Soln NEB ONE (19:52)
[2024-08-04] MEDS: guaiFENesin 600 MG Tab.ER PO ONE (20:10)
[2024-08-04 20:13] LABS: ANION GAP 15.6 (5-15); BUN/CREATININE RATIO 12.2 (14-18); CALCIUM 8.2 mg/dL (8.5-10.1); CREATININE 0.9 mg/dL (0.55-1.02); EST CRCL DRUG DOSING (CG) 49.78 mL/min; POTASSIUM,K 3.6 mEq/L (3.5-5.1)
[2024-08-04] MEDS: predniSONE 20 MG Tab PO ONE (20:38)
[2024-08-04] MEDS: Azithromycin 250 MG Tab PO SCH (20:38)
== END 2024-08-04 20:43 | disposition home or self-care (01) ==
LOC: JD.ED 13:33
DX: J44.1 Chronic obstructive pulmonary disease with (acute) exacerbation (principal); R11.2 Nausea with vomiting, unspecified; I10 Essential (primary) hypertension; I25.2 Old myocardial infarction; E78.00 Pure hypercholesterolemia, unspecified; E03.9 Hypothyroidism, unspecified; Z90.710 Acquired absence of both cervix and uterus; Z79.899 Other long term (current) drug therapy; Z79.890 Hormone replacement therapy; Z79.82 Long term (current) use of aspirin; Z88.8 Allergy status to other drugs, medicaments and biological substances
CPT/HCPCS: 36415; 71045; 80048; 80053; 81001; 85025; 86140; 94640; 96361; 96374; 96375; 99285; A9270; J2405; J2765; J7030; J7512; 99284; J7620-GY

== ENCOUNTER 2025-08-20 11:30 | Inpatient (IN) | payer MEDICARE ==
[2025-08-20 13:05] LABS: BASOPHILS ABSOLUTE AUTO 0.1 K/mm3 (0.0-0.2); BASOPHILS PERCENT AUTO 0.6 % (0.0-1.0); EOSINOPHILS ABSOLUTE AUTO 0.1 K/mm3 (0.0-0.4); EOSINOPHILS PERCENT AUTO 0.6 % (0.0-6.0); IMMATURE GRAN ABSOLUTE AUTO 0.08 K/mm3 (0.00-0.05); IMMATURE GRAN PERCENT AUTO 0.4 % (0.0-0.4); LYMPHOCYTES ABSOLUTE AUTO 1.0 K/mm3 (1.0-4.8); LYMPHOCYTES PERCENT AUTO 4.9 % (24.0-44.0); MEAN PLATELET VOLUME 9.5 fl (9.4-12.3); MONOCYTES ABSOLUTE AUTO 1.0 K/mm3 (0.0-0.8); MONOCYTES PERCENT AUTO 4.9 % (0.0-8.0); NEUTROPHILS ABSOLUTE AUTO 17.7 K/mm3 (1.8-7.7); NEUTROPHILS PERCENT AUTO 88.6 % (41.0-71.0); NRBC ABSOLUTE 0.00 (0.00-0.02); NRBC PERCENT 0.0 % (0.0-0.2); RED BLOOD CELL COUNT 3.35 M/mm3 (4.10-5.30); WHITE BLOOD CELL COUNT,WBC 20.01 K/mm3 (3.9-11.3)
[2025-08-20 13:07] LABS: PLATELET COUNT,PLT 380 K/mm3 (150-400)
[2025-08-20] MEDS: methylPREDNISolone Sodium Succinate 125 MG/2 ML SDV IVPUSH ONE (13:13)
[2025-08-20 13:17] LABS: LACTIC ACID 1.0 mmol/L (0.4-2.0)
[2025-08-20 13:30] LABS: A/G RATIO 1.2 (1-2); ALANINE AMINOTRANSFERASE,ALT 16.0 U/L (14-59); ASPARTATE AMNIOTRANSFERASE,AST 13.0 U/L (15-37); BILIRUBIN TOTAL 0.5 mg/dL (0.2-1.0); BLOOD UREA NITROGEN,BUN 12.0 mg/dL (7-18); CARBON DIOXIDE,CO2 23.0 mEq/L (21-32); CHLORIDE,CL 98.0 mEq/L (98-107); CREATININE 0.8 mg/dL (0.55-1.02); EST CRCL DRUG DOSING (CG) 52.99 mL/min; ESTIMATED GFR 76.0 mL/min (>60); GLUCOSE RANDOM 138.0 mg/dL (70-99); POTASSIUM,K 3.5 mEq/L (3.5-5.1); PROTEIN TOTAL,TP 7.3 g/dl (6.4-8.2); SODIUM,NA 133.0 mEq/L (136-145); TROPONIN I HIGH SENSITIVITY 9.0 pg/mL (<=51)
[2025-08-20] MEDS: Ondansetron 4 MG/2 ML SDV IVPUSH ONE ×2 (13:37→14:11)
[2025-08-20] MEDS: Acetaminophen/HYDROcodone 325-5 MG Tab PO ONE (14:11)
[2025-08-20] MEDS ORDERED: Ondansetron 4 MG/2 ML SDV IV PRN (14:40)
[2025-08-20] MEDS: Acetaminophen/HYDROcodone 325-5 MG Tab PO PRN (18:33)
[2025-08-20] MEDS: cefTRIAXone 2 GM in Water For Injection, Sterile 20 ML IVPUSH SCH (21:19)
[2025-08-21 05:24] LABS: MEAN PLATELET VOLUME 9.6 fl (9.4-12.3); NRBC ABSOLUTE 0.00 (0.00-0.02); NRBC PERCENT 0.0 % (0.0-0.2); PLATELET COUNT,PLT 366 K/mm3 (150-400); RED BLOOD CELL COUNT 3.06 M/mm3 (4.10-5.30); WHITE BLOOD CELL COUNT,WBC 22.75 K/mm3 (3.9-11.3)
[2025-08-21 05:55] LABS: A/G RATIO 1.1 (1-2); ALANINE AMINOTRANSFERASE,ALT 14.0 U/L (14-59); ASPARTATE AMNIOTRANSFERASE,AST 11.0 U/L (15-37); BILIRUBIN TOTAL 0.4 mg/dL (0.2-1.0); BLOOD UREA NITROGEN,BUN 16.0 mg/dL (7-18); CARBON DIOXIDE,CO2 24.0 mEq/L (21-32); CHLORIDE,CL 99.0 mEq/L (98-107); CREATININE 1.1 mg/dL (0.55-1.02); EST CRCL DRUG DOSING (CG) 40.09 mL/min; ESTIMATED GFR 52.0 mL/min (>60); GLUCOSE RANDOM 131.0 mg/dL (70-99); POTASSIUM,K 3.9 mEq/L (3.5-5.1); PROTEIN TOTAL,TP 7.2 g/dl (6.4-8.2); SODIUM,NA 135.0 mEq/L (136-145)
[2025-08-21] MEDS: Remove Patch *NICOTINE TRDERM SCH (08:01)
[2025-08-21 08:11] VITALS: BP 146/73; PULSE 80
[2025-08-21] MEDS: cefTRIAXone 1 GM in Water For Injection, Sterile 10 ML IVPUSH SCH (12:34)
== END 2025-08-21 14:14 | disposition home or self-care (01) | DRG 189 ==
LOC: JD.ED 11:30 → JD.MS 14:08
PROVIDERS: ADMIT Internal Medicine; ATTEND Internal Medicine
DX: J44.9 Chronic obstructive pulmonary disease, unspecified (principal); J96.01 Acute respiratory failure with hypoxia; E78.00 Pure hypercholesterolemia, unspecified; E03.9 Hypothyroidism, unspecified; J44.1 Chronic obstructive pulmonary disease with (acute) exacerbation; I25.10 Atherosclerotic heart disease of native coronary artery without angina pectoris; Z88.8 Allergy status to other drugs, medicaments and biological substances; E78.5 Hyperlipidemia, unspecified; I10 Essential (primary) hypertension; H54.7 Unspecified visual loss; F17.200 Nicotine dependence, unspecified, uncomplicated; G89.29 Other chronic pain; G62.9 Polyneuropathy, unspecified; E89.0 Postprocedural hypothyroidism; F32.A Depression, unspecified; Z85.850 Personal history of malignant neoplasm of thyroid; Z95.5 Presence of coronary angioplasty implant and graft; Z87.01 Personal history of pneumonia (recurrent); Z90.710 Acquired absence of both cervix and uterus; Z98.890 Other specified postprocedural states; Z79.82 Long term (current) use of aspirin; Z79.2 Long term (current) use of antibiotics; Z79.890 Hormone replacement therapy; Z79.899 Other long term (current) drug therapy; Z79.1 Long term (current) use of non-steroidal anti-inflammatories (NSAID)
CPT/HCPCS: 36415; 71046; 80053; 83605; 83880; 84484; 85025; 87040 ×2; 94640; 96365; 96375; 99285; A9270; J2405; J2543; 85027; 86140; 87428-QW; 94761; A4216; J0456; J0696; J1650; J2919; J7050; J7512